=== PATIENT | male | born 1950 | race Caucasian/White ===

== ENCOUNTER → 2016-12-25 | Outpatient (CLI) | payer OTHER ==
[~2016-12-25] MED LIST: ALLEGRA NASAL; ASPIR 8181 MG PO; CENTRUM SILVER1 EAC2 PO; CENTRUM SILVER1 EAC4 PO; CLARITIN10 MG PO; CO Q-10200 MG PO; COQ-10100 MG PO; CVS BUFFERED A325 MG PO; FLOMAX0.4 MG PO; KRILL OIL 3001 EACH PO; LEVOTHYROXINE0.05 MG PO; LIPITOR 20 MG T20 M1 PO; MELATONIN 1 MG1 EACH PO; MS CONTIN15 MG PO; PERCOCET PO; PROSCAR 5MG TABL5 MG PO; VITAMIN B-12500 MCG PO; VITAMIN B122500 MCG PO
== END ==
LOC: MRI 05:15
DX: R93.8 Abnormal findings on diagnostic imaging of other specified body structures (principal); R10.30 Lower abdominal pain, unspecified; M25.551 Pain in right hip

== ENCOUNTER 2017-02-18 05:14 | Inpatient (IN) | payer OTHER ==
[2017-02-06 14:00] LABS: URINE BILIRUBIN NEGATIVE (Negative); URINE BLOOD NEGATIVE (Negative); URINE COLOR YELLOW; URINE GLUCOSE-RANDOM* NEGATIVE (Negative); URINE KETONES NEGATIVE (Negative); URINE LEUKOCYTES-REFLEX NEGATIVE (Negative); URINE PROTEIN (DIPSTICK) NEGATIVE (Negative); URINE UROBILINOGEN 0.2 E.U./dl (0.2-1.0)
[2017-02-06 14:02] LABS: HEMATOCRIT 42.3 % (42.0-52.0); HEMOGLOBIN 14.1 gm/dL (14.0-18.0); MCH 30.7 pg (26.0-34.0); MCHC 33.5 g/dL (28.0-37.0); MCV 91.8 fL (80.0-100.0); RBC 4.6 mil/uL (4.50-6.00); RDW 14.1 % (10.5-14.5); WBC 7.3 thou/uL (4.0-11.0)
[2017-02-06 14:11] LABS: ALBUMIN 4.3 g/dL (3.4-5.0); CALCIUM 9.7 mg/dL (8.5-10.1); CREATININE 1.1 mg/dL (0.6-1.3); POTASSIUM 4.6 mmol/L (3.5-5.1)
[2017-02-06 14:14] LABS: PROTIME 10.6 Seconds (9.3-11.4)
[~2017-02-18] VITALS: Ht 177.8 cm; Wt 91.6 kg
--- NOTE | ~2017-02-18 | O ---
[facility] [place] [address] OPERATIVE REPORT Name: MIKAELA JOYCE Room #: 540-P [facility] IN M.R.#: [id number] Admission: 02/18/17 Attend Phys: Austin Vincent MD Discharge: Date of : 50 Report #: [id number] THIS REPORT FOR: //name// CC: Lucia Vincent DATE OF SERVICE: 02/18/2017 PREOPERATIVE DIAGNOSIS: Right hip osteoarthritis. POSTOPERATIVE DIAGNOSIS: Right hip osteoarthritis. PROCEDURE: Right total hip arthroplasty. SURGEON: Austin Vincent MD. MANAGER VEHICLE: Nida Koch PA-C. ANESTHESIA: General endotracheal. IMPLANTS: Reece [employer] Nephew size 12 high offset Synergy press fit stem, a size 54 R3 acetabular cup with one acetabular screw and a size 36+0 cobalt chrome head. ESTIMATED BLOOD LOSS: 50 mL. COMPLICATIONS: None. SPECIMENS: None. CONDITION UPON LEAVING THE OPERATING ROOM: Stable. INDICATIONS FOR PROCEDURE: The patient is a 66-year-old gentleman with severe right hip osteoarthritis. He had failed conservative treatment for this, and after discussion with him, he elected for right total hip arthroplasty. DESCRIPTION OF PROCEDURE: Risks, benefits, alternatives, and complications were discussed in detail with the patient including but not limited to risk of anesthesia, risk of damage to nerves, arteries, blood vessels, and risk for infection, bleeding, and risk for continued hip pain, leg length discrepancy, instability and need for reoperation. An informed consent was obtained from the patient. Right hip was appropriately marked in the preoperative holding area. He was brought to the operating room and placed in supine position on the operating room table. General endotracheal anesthesia was induced without complication. He was placed in the left lateral decubitus position with the right hip uppermost. Right hip and lower extremity were prepped and draped in [facility] [address] [place] [address] OPERATIVE REPORT Name: MIKAELA JOYCE Room #: 540-P [facility] IN M.R.#: [id number] Admission: 02/18/17 Attend Phys: Austin Vincent MD Discharge: Date of : 50 Report #: [id number] normal sterile fashion. An IV Ancef was given for preoperative antibiotics. A timeout was performed properly identifying the patient and procedure, as well as the instrumentation and implants. All in the operating room were in agreement. Standard posterior approach to the hip was made with #10 blade through the skin. Dissection was taken down to the fascia with Bovie cautery. A Barclay elevator was used to clean off the fascia. Fresh #10 blade was used to make a fascial incision. This was taken proximally and distally with the curved Espinosa scissor. Charnley retractor was placed. Trochanteric bursa was taken down with Bovie cautery. Piriformis tendon was identified, tagged, and taken down with Bovie. Short external rotators were also taken down with Bovie cautery. Capsulotomy was made, and capsular ends were tagged for later repair. The hip was dislocated, and there was extensive osteoarthritic change of the femoral head. Femoral neck cut was made 1 cm proximal to lesser trochanter based on preoperative templating. Deep acetabular retractors were placed, and the labrum was removed sharply. The pulvinar was removed with Bovie cautery. Acetabulum was then sequentially reamed up to a size 54. At which point, there was excellent bleeding cancellous bone. A size 53 acetabular trial was placed, found to have a good fit. A final size 54 R3 acetabular cup was then seated and placed in the acetabulum. One acetabular screw was placed for backup fixation. The polyethylene liner for a 36 head was placed. Attention was turned to the femur. This was reamed and broached up to size 12, at which point, the size 12 broach was stable. This was trialed with a high offset neck and a 36+0 head. Hip was reduced, taken through range of motion, found to be stable, and found to have equal leg lengths. Hip was dislocated. The trial components were removed, and then the final size 12 high offset Synergy press fit stem was placed. This was trialed again with a 36+0 head. Hip was reduced, taken through range of motion, found to be stable, found to have equal leg lengths. Hip was dislocated once more, and the trial head was removed, and a final size 36+0 cobalt chrome head was placed. Hip again was reduced, taken through range of motion, found to be stable, found to have equal leg lengths. Wound was thoroughly irrigated with normal saline. A periarticular injection consisting of ropivacaine, morphine, epinephrine, and Toradol was placed. The capsule and piriformis were repaired with 0 FiberWire. The fascia was closed with 0 Vicryl. Skin was closed with 2-0 Vicryl, 3-0 Monocryl, and Dermabond. Soft dressing of Aquacel was applied. The patient tolerated this procedure well and went to the recovery room under the care of anesthesia postoperatively. <ELECTRONICALLY SIGNED> By: Austin Vincent MD 02/19/17 0732 1517 1801 Austin Vincent MD /nt
--- NOTE | ~2017-02-18 | EKG ---
[address] [address] ELECTROCARDIOGRAM REPORT Name: MIKAELA JOYCE Room #: [facility]#: [id number] Admission: Attend Phys: Austin Vincent MD Discharge: Date of : 50 Report #: [id number] THIS REPORT FOR: //name// [facility] Test Date: 2017-02-06 Test Time: 13:31:06 Pat Name: MIKAELA JOYCE Department: Room: Gender: [employer] Land Officer: Ninfa CHUA : 1950 Requested By: Austin Vincent Order Number: [id number] MD: Mart Yates Measurements Intervals Rosalie Rate: 53 P: 44 FL: 170 QRS: -2 QRSD: 103 T: 16 QT: 418 QTc: 393 Interpretive Statements Sinus bradycardia No significant abnormality No previous ECG available for comparison Electronically Signed On 02-07-2017 8:56:33 [employer]ION [employer] CAMERA OPERATOR by Mart Yates [email or web address] <ELECTRONICALLY SIGNED> By: Mart Yates MD, [facility] 02/07/17 0856 1331 1331 Mart Yates MD, FAC /EPI
[~2017-02-18 05:14] MED LIST changes: -CVS BUFFERED A325 MG PO; -MS CONTIN15 MG PO; -PERCOCET PO
[2017-02-18 11:00] VITALS: BP 158/76
[2017-02-18 16:55] VITALS: BP 124/69
[2017-02-18 17:00] VITALS: BP 123/78
[2017-02-18 19:00] VITALS: BP 118/72
[2017-02-18 23:02] VITALS: BP 127/71
[2017-02-19 03:23] VITALS: BP 135/68
[2017-02-19 06:00] LABS: HEMATOCRIT 34.5 % (42.0-52.0); HEMOGLOBIN 11.8 gm/dL (14.0-18.0); MCH 30.8 pg (26.0-34.0); MCHC 34.1 g/dL (28.0-37.0); MCV 90.5 fL (80.0-100.0); RBC 3.81 mil/uL (4.50-6.00); RDW 13.7 % (10.5-14.5); WBC 15.9 thou/uL (4.0-11.0)
[2017-02-19 08:00] VITALS: BP 143/68
[2017-02-19 15:45] VITALS: BP 148/71
[2017-02-19 20:00] VITALS: BP 141/84
[2017-02-20] VITALS: BP 158/78
[2017-02-20 04:00] VITALS: BP 145/67
[2017-02-20 05:35] LABS: HEMATOCRIT 35.7 % (42.0-52.0); HEMOGLOBIN 11.9 gm/dL (14.0-18.0); MCH 30.9 pg (26.0-34.0); MCHC 33.4 g/dL (28.0-37.0); MCV 92.4 fL (80.0-100.0); RBC 3.87 mil/uL (4.50-6.00); RDW 13.9 % (10.5-14.5)
[2017-02-20 07:53] VITALS: BP 148/72
[2017-02-20 10:47] VITALS: BP 148/72
[2017-02-20 10:49] VITALS: BP 148/72
[2017-02-20] MEDS ORDERED: CVS BUFFERED A325 MG PO (12:04)
[2017-02-20] MEDS ORDERED: MS CONTIN15 MG PO (12:04)
[2017-02-20] MEDS ORDERED: PERCOCET PO (12:05)
== END 2017-02-20 13:07 | disposition home or self-care (01) | DRG 470 ==
LOC: 5S 05:14 → TBA 05:14 → PRE 09:26 → 5S 15:48
PROVIDERS: Orthopaedic Surgery
PROC: 0SR901Z Replacement of Right Hip Joint with Metal Synthetic Substitute, Open Approach (ICD-10-PCS; principal; 2017-02-18)
DX: M16.11 Unilateral primary osteoarthritis, right hip (principal); I10 Essential (primary) hypertension; E78.00 Pure hypercholesterolemia, unspecified; J30.2 Other seasonal allergic rhinitis; E78.5 Hyperlipidemia, unspecified; G62.9 Polyneuropathy, unspecified; Z90.49 Acquired absence of other specified parts of digestive tract; Z85.820 Personal history of malignant melanoma of skin; Z98.2 Presence of cerebrospinal fluid drainage device
CPT/HCPCS: 10785; 50010; 50101; 50382; 50414; 50612; 50939; 51771; 52256; 53000; 53078; 53367; 54118; 56524; 56527; 56528; 56530; 57095; 62110; 62900; 70005

== ENCOUNTER → 2020-04-22 | Outpatient (CLI) | payer OTHER ==
[~2020-04-22] VITALS: Ht 177.8 cm; Wt 78.9 kg
[~2020-04-22] MED LIST changes: +ASA81BEC PO; +CVS BUFFERED A325 MG PO; +MIRALAX119 GM PO; +MS CONTIN15 MG PO; +PERCOCET PO; +SYNTHROID50 MCG PO; +VITAMIN B-121000 MC2 PO
--- NOTE | 2020-04-23 12:27 | P ---
[facility] [place] [address] PROCEDURE REPORT Name: MIKAELA JOYCE Room #: [facility]#: [id number] Admission: 04/22/20 Attend Phys: Jason Patel MD Discharge: Date of : 50 Report #: [id number] THIS REPORT FOR: cc: Lucia Mccracken MD, Nora P. MD Thesing, John A. MD ~ CC: Jason Mccracken MD BRIEF HISTORY: The patient is a 69-year-old male for high risk screening colonoscopy. He has a prior history of colon polyps. PREOPERATIVE DIAGNOSIS: High risk screening colonoscopy. POSTOPERATIVE DIAGNOSIS: Multiple colon polyps. MEDICATIONS: Deep sedation with propofol per Anesthesia. SPECIMENS: 1. Polyp, mid ascending colon. 2. Polyp, cecum. 3. Polyp at 40 cm, removed, not retrieved. 4. Polyp at 20 cm. ESTIMATED BLOOD LOSS: 3 mL. PROCEDURE: Colonoscopy to cecum and terminal ileum with snare polypectomy and biopsy. FINDINGS: Prior to propofol sedation, procedure of colonoscopy discussed with the patient as well as potential risks and its complications. He indicates he understands and desires to proceed. DESCRIPTION OF PROCEDURE: With the patient in left lateral decubitus position, digital examination was completed which revealed no abnormalities. Subsequently, the Olympus video colonoscope was introduced into the rectum, advanced under direct vision to the cecum. Done with minimal difficulty. The cecum was identified by the ileocecal valve and the appendiceal orifice. I was able to visualize the distal segment of terminal ileum, which was inspected and noted to be unremarkable. At that point, the scope was slowly withdrawn and careful circumferential views were obtained including retroflexion of the scope in the ascending colon. Upon slow withdrawal of the scope, the prep was excellent, the mucosa within normal limits, normal vascular pattern, normal light reflex. We identified 2 polyps. One was a 4 mm flat polyp in the cecum, removed by cold snare polypectomy. The other was a 5-6 mm sessile polyp in the mid ascending colon, removed by cold snare polypectomy. The scope was further [facility] [address] [address] PROCEDURE REPORT Name: MIKALEA JOYCE Room #: [facility].#: [id number] Admission: 04/22/20 Attend Phys: Jason Patel MD Discharge: Date of : 50 Report #: [id number] withdrawn and no additional abnormalities were noted as we withdrew the scope until the sigmoid colon was reached and at 40 cm a diminutive polyp was seen and removed with biopsy forceps. The polyp was removed, but unfortunately not recovered. It was a diminutive polyp and may not have been of clinical significance. However, another diminutive polyp was seen at 20 cm, removed by biopsy forceps and this one was recovered. Scope was further withdrawal, no additional abnormalities were seen. The scope was withdrawn into the rectum, no abnormalities were seen. Upon retroflexion, no abnormalities were seen. Scope was withdrawn. The patient tolerated the procedure well. CONDITION OF THE PATIENT UPON DISCHARGE: Following procedure, the patient was drowsy, arousable and conversant, and will be discharged to home when fully ambulatory. INSTRUCTIONS TO THE PATIENT AND FAMILY AT THE TIME OF DISCHARGE: Findings of polyps as described. We will follow up on the path and make further recommendations. At this point, if 3 or more polyps are adenomatous, he should return in 3 years; if one or 2 adenomatous, he should return in 5 years; if by chance none are adenomatous, then 10 years would be indicated. He will return to the care of Dr. Lucia Mccracken and return to see me as needed. Last colonoscopy was 3 years ago. Withdrawal time from the cecum was 19 minutes 45 seconds. <ELECTRONICALLY SIGNED> By: Jason Patel MD 04/23/20 1227 0851 0904 Jason Patel MD /nt
--- NOTE | 2020-04-26 18:07 | PATH ---
[facility] [place] [address] PATHOLOGY RPT PROCEDURE Name: SWAPNIL KELLY Room #: [facility] Phani.#: [id number] Admission: 04/22/20 Date of : 50 Discharge: Report #: [id number] Path Case #: [id number] [facility] Accession Number: [id number] . 01 Material submitted: . PART A: colon - POLYP AT MID ASCENDING COLON. Modifiers: mid, ascending PART B: cecum - POLYP AT CECAL PART C: colon - POLYP AT 40CM PART D: colon - POLYP AT 20CM . 01 Clinical history: . HX of polyps . 02 Diagnosis: A. Polyp, mid ascending colon, endoscopic biopsy: - Tubular adenoma. - Negative for high-grade dysplasia. . B. Polyp, at cecal, endoscopic biopsy: - Tubular adenoma. - Negative for high-grade dysplasia. . C. Polyp, at 40 cm, endoscopic biopsy: - No tissue present for examination. . D. Polyp, at 20 cm, endoscopic biopsy: - Hyperplastic polyp and a lymphoid aggregate. - Negative for dysplasia. (IUV:pit 04/26/2020) QTP 04/26/2020 1435 Local . 02 Electronically signed: . Sofia Leos MD, Pathologist NPI- [id number] . 01 Gross description: . A. The specimen is received in formalin labeled "Swapnil Kelly, polyp at mid ascending colon" and consists of a segment of pink-mike tissue measuring 0.6 x 0.3 x 0.2 cm which is entirely submitted in A1. . B. The specimen is received in formalin labeled "Swapnil Kelly, polyp at cecal" and consists of a mike segment of tissue measuring 9.0 x 0.3 x 0.2 cm which is bisected and entirely submitted in B1. . C. The specimen is received in formalin labeled "Swapnil Kelly, polyp at 40 cm" and consists of minute fragment of white tissue measuring 0.1 x 0.1 x 0.1 cm which is entirely submitted in C1. [address] [address] PATHOLOGY RPT PROCEDURE Name: SWAPNIL KELLY Room #: REG CL Leisa.Susannah.#: [id number] Admission: 04/22/20 Date of : 50 Discharge: Report #: [id number] Path Case #: [id number] . D. The specimen is received in formalin labeled "Swapnil Kelly, polyp at 20 cm" and consists of 2 fragments of mike tissue measuring 0.6 x 0.3 x 0.2 cm in aggregate which are entirely submitted in D1. (IDALMIS; 04/22/2020) JFQ/JFJaquan 04/22/2020 1647 Local . 02 Pathologist provided ICD-10: D12.2, D12.0, K63.5 . 02 CPT . 318771, 884914, [id number] Specimen Comment: A courtesy copy of this report has been sent to [phone], [phone] Specimen Comment: [phone] Specimen Comment: Report sent to / DR MEAD Performed at: [address], [place] [id number] MD Wood Baez MD Phone: [phone] Performed at: [address] [id number] MD Sofia Leos MD Phone: [phone]
== END | disposition home or self-care (01) ==
LOC: GI 02-26 10:34
DX: Z12.11 Encounter for screening for malignant neoplasm of colon (principal); Z86.010 Personal history of colon polyps; D12.2 Benign neoplasm of ascending colon; D12.0 Benign neoplasm of cecum; E78.00 Pure hypercholesterolemia, unspecified; E03.9 Hypothyroidism, unspecified; M19.90 Unspecified osteoarthritis, unspecified site; Z98.890 Other specified postprocedural states; Z79.899 Other long term (current) drug therapy; Z96.641 Presence of right artificial hip joint; Z85.820 Personal history of malignant melanoma of skin; Z79.82 Long term (current) use of aspirin; Z11.59 Encounter for screening for other viral diseases
CPT/HCPCS: 62110; 62900

== ENCOUNTER → 2020-09-12 | Outpatient (CLI) | payer OTHER | LOC: RAD 11:04 | PROVIDERS: ATTEND Family Medicine | DX: M19.011 Primary osteoarthritis, right shoulder (principal) ==